=== PATIENT | male | born 1945 | race Two or more races ===

== ENCOUNTER 2023-10-20 13:17 | Emergency (ER) | payer MEDICAID, MEDICARE ==
[~2023-10-20] VITALS: Ht 170.2 cm; Wt 60.0 kg
[2023-10-20 13:22] VITALS: O2SAT 100
[2023-10-20] MEDS: SODIUM CHLORIDE 0.9% 1,000 ML IV ONE (14:00)
[2023-10-20 14:38] LABS: BASOPHILS % 0.1 % (0.0-2.0); HEMATOCRIT. 33.4 % (42.0-52.0); HEMOGLOBIN. 11.7 g/dL (14.0-18.0); LYMPHOCYTES % 8.8 % (20.0-50.0); MEAN CORPUSCULAR HEMOGLOBIN 32.9 pg (28.0-32.0); MEAN CORPUSCULAR VOLUME 93.9 fL (80.0-94.0); MEAN PLATELET VOLUME 9.5 fl (7.4-10.4); MONOCYTES % 4.2 % (2.0-8.0); NEUTROPHILS % 86.9 % (40.0-76.0); PLATELET 137 x1000/uL (130-400); RED BLOOD CELL COUNT 3.56 mill/uL (4.7-6.1); WHITE BLOOD COUNT 9.2 x1000/uL (4.5-11.0)
[2023-10-20 14:48] LABS: INR 1.1; PROTHROMBIN TIME 12.5 sec (9.6-11.0)
[2023-10-20 14:55] LABS: ALANINE AMINOTRANSFERASE 14 IU/L (10-49); ALBUMIN 3.8 g/dL (3.2-4.8); ASPARTATE AMINOTRANSFERASE 19 IU/L (<34); BILIRUBIN TOTAL 1.1 mg/dL (0.1-1.0); CALCIUM 8.4 mg/dL (8.7-10.4); CARBON DIOXIDE 25 mEq/L (21-32); CHLORIDE 105 mEq/L (98-107); CREATINE KINASE 129 IU/L (46-171); CREATININE 1.1 mg/dL (0.6-1.3); GLUCOSE 309 mg/dL (70-105); POTASSIUM 4.3 mEq/L (3.5-5.1); PROTEIN TOTAL 6.5 g/dL (6.0-8.3); SODIUM 138 mEq/L (136-145); TROPONIN I HIGH SENSITIVITY 26 ng/L (3.0-53); UREA NITROGEN BLOOD 23 mg/dL (9-23)
[2023-10-20 15:24] LABS: ETHANOL BLOOD < 10 mg/dL (<10)
[2023-10-20 15:30] LABS: LACTIC ACID 3.6 mmol/L (0.4-2.0)
[2023-10-20] MEDS: SODIUM CHLORIDE 0.9% 1000ML BAG (SEPSIS BOLUS) IV ONE (17:30)
[2023-10-20] MEDS ORDERED: DOCUSATE SODIUM 100MG CAPSULE PO PRN (18:00)
[2023-10-20] MEDS ORDERED: MAGNESIUM/ALUMINUM HYDROXIDE/SIMETHICONE 30ML UDC PO PRN (18:00)
[2023-10-20] MEDS ORDERED: GUAIFENESIN 200MG/10ML SUGAR FREE UDC PO PRN (18:00)
[2023-10-20] MEDS ORDERED: ACETAMINOPHEN 325MG TABLET PO PRN ×2 (18:00)
[2023-10-20] MEDS ORDERED: CLONIDINE 0.1MG TABLET PO PRN (18:00)
[2023-10-20] MEDS ORDERED: IPRATROPIUM/ALBUTEROL 0.5-3(2.5)MG/3ML NEB HHN PRN (18:00)
[2023-10-20] MEDS ORDERED: ONDANSETRON HCL 4MG/2ML INJ IV PRN (18:00)
[2023-10-20 18:10] VITALS: TEMP 94.5
[2023-10-20] MEDS ORDERED: DEXTROSE 50% WATER 50ML SYRINGE IV PRN (18:15)
[2023-10-20] MEDS ORDERED: NICARDIPINE 40MG/200ML PREMIX 200 ML IV PRN (18:15)
[2023-10-20] MEDS ORDERED: BLOOD SUGAR DIAGNOSTIC STRIP TEST SCH (18:17)
[2023-10-20] MEDS ORDERED: INSULIN LISPRO 100 UNITS/ML SUBCUT SCH (18:20)
[2023-10-20] MEDS: DEXAMETHASONE 10 MG/ML VIAL IV NR (18:39)
[2023-10-20] MEDS: LEVETIRACETAM 500MG PREMIX 100 ML IV SCH (18:40)
[2023-10-20 19:03] LABS: BILIRUBIN DIRECT 0.4 mg/dL (<=3.0); IRON 11 ug/dL (65-175); TOTAL IRON BINDING CAPACITY 308 ug/dl (250-425)
[2023-10-20 19:06] LABS: INR 1.2; PARTIAL THROMBOPLASTIN TIME 31.2 sec (23.4-31.0); PROTHROMBIN TIME 12.8 sec (9.6-11.0)
[2023-10-20 19:14] LABS: FERRITIN 157 ng/mL (22-322); VITAMIN B12 SERUM 286 pg/mL (211-911)
[2023-10-20 19:15] LABS: LACTIC ACID 2.6 mmol/L (0.4-2.0)
[2023-10-20 19:17] VITALS: BP 107/56; PULSE 73; RESP 18
[2023-10-20] MEDS ORDERED: LACTATED RINGERS 1,000 ML IV SCH (19:30)
[2023-10-20] MEDS ORDERED: ATORVASTATIN CALCIUM 40MG TABLET PO SCH (21:00)
[2023-10-20] MEDS ORDERED: PIPERACILLIN/TAZO 3.375G/50ML 50 ML IV SCH (21:00)
[2023-10-20] MEDS ORDERED: INSULIN GLARGINE 100 UNITS/ML SUBCUT SCH (22:00)
[2023-10-21] MEDS ORDERED: DEXAMETHASONE 4MG/ML 1ML VIAL IV SCH
[2023-10-21] MEDS ORDERED: NICARDIPINE 50 MG in SODIUM CHLORIDE 0.9% 230 ML IV PRN
[2023-10-21] MEDS ORDERED: PANTOPRAZOLE SODIUM 40 MG/VIAL IV SCH (09:00)
== END 2023-10-20 19:08 | disposition short-term general hospital (02) ==
LOC: ER 13:17
DX: A41.9 Sepsis, unspecified organism (principal); R65.20 Severe sepsis without septic shock; I62.9 Nontraumatic intracranial hemorrhage, unspecified; R41.82 Altered mental status, unspecified; I67.82 Cerebral ischemia; E11.9 Type 2 diabetes mellitus without complications; I10 Essential (primary) hypertension
CPT/HCPCS: 80053; 80320; 82248; 82550; 82607; 82728; 82746; 83036; 83880; 83540; 83550; 83605; 83735; 84100; 85025; 85610; 85730; 86850; 86900; 86901; 87040; 84484; 36415; 84145; 71045; 70496; 70498; 70450; 93005; 96361; 96365; 96375; 99291; J1953; J1100; J7030; Z7610 ×5; G0480